=== PATIENT | female | born 1995 | race Two or more races ===

== ENCOUNTER 2019-06-07 15:48 | Emergency (ER) | payer OTHER ==
[~2019-06-07] VITALS: Ht 157.5 cm; Wt 47.6 kg
--- NOTE | 2019-06-07 15:56 | NUR ---
ED Nurse Note: pt walked in to ed for .c/o vaginal bleeding since 06/05/19. pt reports being 9 weeks at this time.
--- NOTE | 2019-06-07 16:01 | NUR ---
ED Nurse Note:urine sent
[2019-06-07] MEDS ORDERED: Acetaminophen 500mg (ES) tab ORAL ONE (16:15)
--- NOTE | 2019-06-07 16:22 | NUR ---
ED Nurse Note: went to [facility]
[2019-06-07 16:41] LABS: APPEARANCE,URINE SLIGHTLY CLOUDY; BILIRUBIN, URINE NEGATIVE (NEGATIVE); COLOR,URINE PALE YELLOW; GLUCOSE, URINE (UA) NEGATIVE (NEGATIVE); KETONES,URINE NEGATIVE (NEGATIVE); LEUKOCYTE ESTERASE ,URINE NEGATIVE (NEGATIVE); NITRITE,URINE NEGATIVE (NEGATIVE); PH,URINE 5 (4.5-8.0); PROTEIN,URINE 1+ (NEGATIVE); UROBILINOGEN,URINE NORMAL MG/DL (0.0-1.0)
[2019-06-07 16:54] LABS: BASOPHILS % (AUTO) 0.7 % (0.0-2.0); EOSINOPHILS % (AUTO) 0.7 % (0.0-3.0); HEMATOCRIT 34.4 % (37.0-47.0); HEMOGLOBIN 11.7 G/DL (12.0-16.0); LYMPHOCYTES % (AUTO) 42.1 % (20.0-45.0); MEAN CORPUSCULAR VOLUME 86 FL (80-99); MONOCYTES % (AUTO) 9.3 % (1.0-10.0); NEUTROPHILS % (AUTO) 47.3 % (45.0-75.0); PLATELET COUNT 280 K/UL (150-450); RED BLOOD COUNT 3.99 M/UL (4.20-5.40); RED CELL DISTRIBUTION WIDTH 14.3 % (11.6-14.8)
--- NOTE | 2019-06-07 17:09 | NUR ---
ED Nurse Note: BACK FROM CT
--- NOTE | 2019-06-07 17:10 | NUR ---
ED Nurse Note: PT REFUSED IV NS. ERPA AWARE.
[2019-06-07 17:13] LABS: ANION GAP 11 mmol/L (5-15); BLOOD UREA NITROGEN 7 mg/dL (7-18); CALCIUM 8.9 MG/DL (8.5-10.1); CARBON DIOXIDE 25 MMOL/L (21-32); CHLORIDE 105 MMOL/L (98-107); CREATININE 0.6 MG/DL (0.55-1.30); POTASSIUM 3.6 MMOL/L (3.5-5.1); SODIUM 141 MMOL/L (136-145)
[2019-06-07 17:18] LABS: ALANINE AMINOTRANSFERASE 22 U/L (12-78); ALBUMIN 4.1 G/DL (3.4-5.0); ALBUMIN/GLOBULIN RATIO 0.9 (1.0-2.7); ALKALINE PHOSPHATASE 62 U/L (46-116); ASPARTATE AMINO TRANSFERASE 17 U/L (15-37); BILIRUBIN,TOTAL 0.2 MG/DL (0.2-1.0)
--- NOTE | 2019-06-07 17:19 | Diagnostic Imaging Report ---
. Indication: Pelvic pain and vaginal bleeding, positive test at home. Quantitative beta hCG pending Technique: Transabdominal and transvaginal images of the pelvis. Doppler interrogation of the ovaries Comparison: none Findings: Uterus measures 9.2 cm length by 4.2 cm AP. Endometrium measures 8 mm thick. No myometrial abnormality. No free cul-de-sac fluid The right ovary measures 4.5 cm in length, demonstrates what is probably hemorrhagic corpus luteum. The left ovary measures 2.3 cm in length. Impression: No intrauterine demonstrated. If patient is , differential considerations include very early , spontaneous , ectopic Normal ovaries Findings discussed by phone with ER nurse practitioner Erica at the time of interpretation
--- NOTE | 2019-06-07 18:15 | NUR ---
ED Nurse Note: PELVIC EXAM PERFORMED BY ERMD ACCOMPANIED BY ERPA AT BEDSIDE.
--- NOTE | 2019-06-07 18:25 | Emergency Room Report ---
History of Present Illness General Chief Complaint: Complications Source: Patient Present Illness HPI 24-year-old female with no significant past medical history who is G3, P2 here complaining lower abdominal cramping that started this morning and 2 days of vaginal clotting. Patient reports that she is about 9 weeks . Has not yet had any HOME ADVISOR visits. Found out that she is about 2 weeks ago via a urine test. Continues to smoke marijuana on daily basis. Denies any history of miscarriage. Denies headache and dizziness, syncope, chest pain, shortness of breath, palpitation, urinary symptoms. Reports that the bleeding started Thursday evening, denies any recent travel or lifting heavy objects. Denies tobacco smoke. Patient is sitting comfortably with stable vital signs. Reports that the pain has subsided. Has not taken medication for symptom relief. After evaluation of patient Dr. Km roberts did a pelvic exam and patient and cervix appear to be dilated with a fissure to the right side which suggests incomplete being likely. No adnexal mass palpated Allergies: Coded Allergies: No Known Allergies (Unverified , 06/07/19) Patient History Past Medical History: see triage record Past Surgical History: unable to obtain Pertinent Family History: none Social History: Reports: drug use - marijuana Last Menstrual Period: 11-22 Now: Yes : 3 Para: 2 Immunizations: UTD Reviewed Nursing Documentation: PMH: Agreed; PSxH: Agreed Nursing Documentation-PMH Past Medical History: No History, Except For Review of Systems All Other Systems: negative except mentioned in HPI Physical Exam Vital Signs Date Time Temp Pulse Resp B/P (MAP) Pulse Ox O2 Delivery O2 Flow Rate FiO2 06/07/19 15:51 98.2 86 16 107/58 (74) 99 Room Air Sp02 EP Interpretation: reviewed, normal General Appearance: no apparent distress, alert, GCS 15, non-toxic Head: normocephalic, atraumatic Eyes: bilateral eye normal inspection, bilateral eye PERRL ENT: hearing grossly normal, normal pharynx, no angioedema, normal voice Neck: full range of motion, supple, supple/symm/no masses Respiratory: chest non-tender, lungs clear, normal breath sounds, no rhonchi, no retraction, no wheezing, speaking full sentences Cardiovascular #1: regular rate, rhythm, no edema, no murmur, normal capillary refill Gastrointestinal: non tender, soft, no mass, no organomegaly, no peritonitis Rectal: deferred Genitourinary: normal inspection, no CVA tenderness, other - Cervix dilated Musculoskeletal: back normal, no calf tenderness Neurologic: alert, motor strength/tone normal, oriented x3, sensory intact, responsive, speech normal Psychiatric: judgement/insight normal, memory normal, mood/affect normal, no suicidal/homicidal ideation Skin: no rash Lymphatic: no adenopathy Medical Decision Making PA Attestation All my diagnosis and treatment plans were reviewed ad discussed with my supervising physician Dr. Barbour Diagnostic Impression: Primary Impression: Incomplete Additional Impression: Abdominal cramping affecting ER Course 24-year-old female with no significant past medical history who is G3, P2 here complaining lower abdominal cramping that started this morning and 2 days of vaginal clotting. Patient reports that she is about 9 weeks . Has not yet had any HOME ADVISOR visits. Found out that she is about 2 weeks ago via a urine test. Continues to smoke marijuana on daily basis. Denies any history of miscarriage. Denies headache and dizziness, syncope, chest pain, shortness of breath, palpitation, urinary symptoms. Reports that the bleeding started Thursday evening, denies any recent travel or lifting heavy objects. Denies tobacco smoke. Patient is sitting comfortably with stable vital signs. Reports that the pain has subsided. Has not taken medication for symptom relief. After evaluation of patient Dr. Km roberts did a pelvic exam and patient and cervix appear to be dilated with a fissure to the right side which suggests incomplete being likely. No adnexal mass palpated Ddx considered but are not limited to: Ectopic , incomplete , threatened , abdominal cramping and bleeding during Vital signs: are WNL, pt. is afebrile H&PE are most consistent with: Incomplete , abdominal cramping affecting ORDERS: OB ultrasound, CBC, CMP, UA, beta-hCG, type and screen, ED INTERVENTIONS: NS bolus which patient refused, Tylenol DISCHARGE: At this time pt. is stable for d/c to home. Will provide printed patient care instructions, and any necessary prescriptions. Care plan and follow up instructions have been discussed with the patient prior to discharge. Patient most likely has an incomplete as has been bleeding for 2 days and no longer has cramping Dr. Barbour and I decided that patient to follow- up with HOME ADVISOR in 24 hours however if excruciating pain and worsening symptoms return to the emergency room to rule out possible potential ectopic . Ectopic is very unlikely at this time due to patient's presentation, stable vital signs, and cervical polyps being dilated and open CT/MRI/US Diagnostic Results CT/MRI/US Diagnostic Results : Imaging Test Ordered: OB ultrasound Impression No intrauterine demonstrated, differential considering very early , spontaneous , ectopic Last Vital Signs Date Time Temp Pulse Resp B/P (MAP) Pulse Ox O2 Delivery O2 Flow Rate FiO2 06/07/19 15:51 98.2 86 16 107/58 (74) 99 Room Air Disposition: HOME, SELF-CARE Condition: Stable Patient Instructions: Abdominal Pain During , [id number], Incomplete Miscarriage Additional Instructions: Follow-up with HOME ADVISOR in 24 hours for repeat of ultrasound and blood test. At this time your cervix is dilated and most likely you have an incomplete . However if you start having abdominal pain increased return to the emergency room immediately. Letitia Fernández Jun 07, 2019 18:25
[2019-06-07 18:27] VITALS: BP 110/60
--- NOTE | 2019-06-07 18:27 | NUR ---
ED Nurse Note: PT IN BED RESING, NO ACUTE DISTRESS IS NOTED. SIGNIFICANT OTHER IS AT BEDSIDE.
[2019-06-07 18:35] VITALS: BP 105/62
--- NOTE | 2019-06-07 18:35 | NUR ---
ER DISCHARGE NOTE: Patient is cleared to be discharged per ERMD, pt is aox4, on room air, with stable vital signs. pt was given dc and instructions, pt was able to verbalize understanding, pt id band and iv site removed without complications. pt is able to ambulate with steady gait. pt took all belongings.
== END 2019-06-07 18:35 | disposition home or self-care (01) ==
LOC: EMR 16:05 → CANBEDREQ 18:21 → EMR 18:35
DX: O26.851 Spotting complicating pregnancy, first trimester (principal); O03.4 Incomplete spontaneous abortion without complication; R10.30 Lower abdominal pain, unspecified; Z3A.09 9 weeks gestation of pregnancy
CPT/HCPCS: 36415; 76801; 76830; 80053; 81003; 84702; 85025; 86850; 86900; 86901; Z7502; 99284